=== PATIENT | female | born 1935 | race Caucasian/White ===

== ENCOUNTER 2016-07-16 14:57 | Emergency (ER) | payer MEDICARE ==
[2016-07-16 15:03] VITALS: RESP 16
--- NOTE | 2016-07-16 15:33 | ED ---
General Adult HPI - General Chief complaint: Recheck/Abnormal Lab/Rx Stated complaint: tremors Time Seen by Provider: 07/16/16 15:06 Source: EMS, RN notes reviewed Mode of arrival: EMS Limitations: language barrier - History of Present Illness Initial comments: Is an 81-year-old female brought to emergency department via [facility]. They states that she keeps having spasms, trimming like episodes. They only last a few seconds at a time. Patient information is very limited secondary to her dementia and that she is essentially nonverbal. Patient occasionally does say yes or no but has not otherwise week. When asked questions she has no specific complaints. She denies headache, chest pain, nausea, abdominal pain.. There is no family with the patient at this time in counseling the patient had very limited information on patient. - Related Data Home Medications Medication Instructions Recorded Confirmed Levothyroxine Sodium [Levoxyl] 50 mcg PO DAILY 03/03/14 07/16/16 Memantine [Namenda] 10 mg PO BID 03/03/14 07/16/16 Alendronate Sodium 70 mg PO SA 07/16/16 07/16/16 Cholecalciferol [Vitamin D3] 1,000 unit PO DAILY 07/16/16 07/16/16 Turmeric Root Extract [Turmeric] 500 mg PO DAILY 07/16/16 07/16/16 Previous Rx's Medication Instructions Recorded Levofloxacin [Levaquin] 500 mg PO DAILY #7 tab 07/16/16 Allergies Allergy/AdvReac Type Severity Reaction Status Date / Time No Known Allergies Allergy Verified 07/16/16 15:47 Review of Systems ROS Statement: Those systems with pertinent positive or pertinent negative responses have been documented in the HPI. ROS Other: All systems not noted in ROS Statement are negative. Past Medical History Past Medical History: Dementia, Thyroid Disorder History of Any Multi-Drug Resistant Organisms: None Reported Past Surgical History: No Surgical Hx Reported Additional Past Surgical History / Comment(s): foot Past Psychological History: No Psychological Hx Reported Smoking Status: Never smoker Past Alcohol Use History: None Reported Past Drug Use History: None Reported General Exam General appearance: alert, in no apparent distress Head exam: Present: atraumatic, normocephalic, normal inspection Eye exam: Present: normal appearance, PERRL, EOMI. Absent: scleral icterus, conjunctival injection, periorbital swelling ENT exam: Present: normal exam, normal oropharynx, mucous membranes moist, TM's normal bilaterally, normal external ear exam Neck exam: Present: normal inspection, full ROM. Absent: tenderness, meningismus, lymphadenopathy Respiratory exam: Present: normal lung sounds bilaterally. Absent: respiratory distress, wheezes, rales, rhonchi, stridor Cardiovascular Exam: Present: regular rate, normal rhythm, normal heart sounds. Absent: systolic murmur, diastolic murmur, rubs, gallop, clicks GI/Abdominal exam: Present: soft, normal bowel sounds. Absent: distended, tenderness, guarding, rebound, rigid Extremities exam: Present: other (Contracted extremities) Neurological exam: Present: alert. Absent: oriented X3 Skin exam: Present: warm, dry, intact, normal color. Absent: rash Course Vital Signs 07/16/16 07/16/16 14:58 17:08 Temperature 96.7 F L 97.1 F L Pulse Rate 65 77 Respiratory 16 16 Rate Blood Pressure 149/88 143/87 O2 Sat by Pulse 93 L 93 L Oximetry Medical Decision Making - Medical Decision Making 81-year-old female presented emergency department for tremors. Patient initially showed a via EMS with no family. Patient's family is here and states this is an ongoing issue no acute changes. Chest x-ray showed possible rupture versus atelectasis. Family states she has had a cough. Patient we treated with antibiotics at this time for possible pneumonia. Patient will follow primary care physician and return parameters were discussed. - Lab Data Result diagrams: 07/16/16 15:10 07/16/16 15:10 Lab Results 07/16/16 07/16/16 07/16/16 Range/Units 15:10 15:10 15:10 WBC 2.6 L (3.8-10.6) k/uL RBC 3.76 L (3.80-5.40) m/uL Hgb 12.3 (11.4-16.0) gm/dL Hct 37.2 (34.0-46.0) % MCV 98.8 (80.0-100.0) fL MCH 32.7 (25.0-35.0) pg MCHC 33.1 (31.0-37.0) g/dL RDW 13.3 (11.5-15.5) % Plt Count 177 (150-450) k/uL Neutrophils % 63 % Lymphocytes % 25 % Monocytes % 8 % Eosinophils % 1 % Basophils % 1 % Neutrophils # 1.6 (1.3-7.7) k/uL Lymphocytes # 0.6 L (1.0-4.8) k/uL Monocytes # 0.2 (0-1.0) k/uL Eosinophils # 0.0 (0-0.7) k/uL Basophils # 0.0 (0-0.2) k/uL PT 10.3 (9.0-12.0) sec INR 1.0 (<1.1) APTT 23.2 (22.0-30.0) sec Sodium 144 (137-145) mmol/L Potassium 4.9 (3.5-5.1) mmol/L Chloride 104 (98-107) mmol/L Carbon Dioxide 30 (22-30) mmol/L Anion Gap 10 mmol/L BUN 18 H (7-17) mg/dL Creatinine 0.95 (0.52-1.04) mg/dL Est GFR (MDRD) Af Amer >60 (>60 ml/min/1.73 sqM) Est GFR (MDRD) Non-Af 57 (>60 ml/min/1.73 sqM) Glucose 91 (74-99) mg/dL Calcium 9.1 (8.4-10.2) mg/dL Magnesium 2.0 (1.6-2.3) mg/dL Total Bilirubin 0.3 (0.2-1.3) mg/dL AST 27 (14-36) U/L ALT 23 (9-52) U/L Alkaline Phosphatase 87 (38-126) U/L Troponin I (0.000-0.034) ng/mL Total Protein 6.6 (6.3-8.2) g/dL Albumin 3.7 (3.5-5.0) g/dL Urine Color Urine Appearance (Clear) Urine pH (5.0-8.0) Ur Specific Blossom (1.001-1.035) Urine Protein (Negative) Urine Glucose (UA) (Negative) Urine Ketones (Negative) Urine Blood (Negative) Urine Nitrite (Negative) Urine Bilirubin (Negative) Urine Urobilinogen (<2.0) mg/dL Ur Leukocyte Esterase (Negative) Urine Bacteria (None) /hpf Urine Mucus (None) /hpf 07/16/16 07/16/16 Range/Units 15:10 15:10 WBC (3.8-10.6) k/uL RBC (3.80-5.40) m/uL Hgb (11.4-16.0) gm/dL Hct (34.0-46.0) % MCV (80.0-100.0) fL MCH (25.0-35.0) pg MCHC (31.0-37.0) g/dL RDW (11.5-15.5) % Plt Count (150-450) k/uL Neutrophils % % Lymphocytes % % Monocytes % % Eosinophils % % Basophils % % Neutrophils # (1.3-7.7) k/uL Lymphocytes # (1.0-4.8) k/uL Monocytes # (0-1.0) k/uL Eosinophils # (0-0.7) k/uL Basophils # (0-0.2) k/uL PT (9.0-12.0) sec INR (<1.1) APTT (22.0-30.0) sec Sodium (137-145) mmol/L Potassium (3.5-5.1) mmol/L Chloride (98-107) mmol/L Carbon Dioxide (22-30) mmol/L Anion Gap mmol/L BUN (7-17) mg/dL Creatinine (0.52-1.04) mg/dL Est GFR (MDRD) Af Amer (>60 ml/min/1.73 sqM) Est GFR (MDRD) Non-Af (>60 ml/min/1.73 sqM) Glucose (74-99) mg/dL Calcium (8.4-10.2) mg/dL Magnesium (1.6-2.3) mg/dL Total Bilirubin (0.2-1.3) mg/dL AST (14-36) U/L ALT (9-52) U/L Alkaline Phosphatase (38-126) U/L Troponin I <0.012 (0.000-0.034) ng/mL Total Protein (6.3-8.2) g/dL Albumin (3.5-5.0) g/dL Urine Color Yellow Urine Appearance Cloudy H (Clear) Urine pH 7.5 (5.0-8.0) Ur Specific Blossom 1.016 (1.001-1.035) Urine Protein Trace H (Negative) Urine Glucose (UA) Negative (Negative) Urine Ketones Negative (Negative) Urine Blood Negative (Negative) Urine Nitrite Positive H (Negative) Urine Bilirubin Negative (Negative) Urine Urobilinogen <2.0 (<2.0) mg/dL Ur Leukocyte Esterase Negative (Negative) Urine Bacteria Occasional H (None) /hpf Urine Mucus Rare H (None) /hpf Disposition Clinical Impression: Occasional tremors, Lung infiltrate Disposition: HOME SELF-CARE Condition: Stable Instructions: Tremors (ED) Additional Instructions: Please return to the Emergency Department if symptoms worsen or any other concerns. Prescriptions: Levofloxacin [Levaquin] 500 mg PO DAILY #7 tab Time of Disposition: 17:17
[2016-07-16 15:48] LABS: Basophils % (A) 1 %; CH 32.6; CHCM 33.1; Eosinophils % (A) 1 %; HCT 37.2 % (34.0-46.0); HDW 2.65; HGB 12.3 gm/dL (11.4-16.0); Luc # (Auto) 0.08; Luc % (Auto) 3; Lymphocytes # (A) 0.6 k/uL (1.0-4.8); Lymphocytes % (A) 25 %; MCH 32.7 pg (25.0-35.0); MCHC 33.1 g/dL (31.0-37.0); MCV 98.8 fL (80.0-100.0); Mean Platelet Volume 6.9; Monocytes # (A) 0.2 k/uL (0-1.0); Monocytes % (A) 8 %; Neutrophils # (A) 1.6 k/uL (1.3-7.7); Neutrophils % (A) 63 %; RBC 3.76 m/uL (3.80-5.40); RDW 13.3 % (11.5-15.5); WBC 2.6 k/uL (3.8-10.6); WBC (Perox) 2.55
--- NOTE | 2016-07-16 15:54 | XR ---
EXAMINATION TYPE: XR chest 2V DATE OF EXAM: 07/16/2016 3:50 PM COMPARISON: NONE TECHNIQUE: PA and lateral views submitted. HISTORY: Altered mental status FINDINGS: Subsegmental infiltrate or atelectasis left lung base. Atherosclerotic change aorta. Diffuse osteopen ia. Arthropathy shoulders. Biapical pleural pain. Degenerative change of the spine. IMPRESSION: 1. Left basilar atelectasis favored over infiltrate.
[2016-07-16 16:00] LABS: Partial Thromboplastin Time 23.2 sec (22.0-30.0); Prothrombin Time 10.3 sec (9.0-12.0)
[2016-07-16 16:04] LABS: ALT 23 U/L (9-52); AST 27 U/L (14-36); Alkaline Phosphatase 87 U/L (38-126); Anion Gap 10 mmol/L; Blood Urea Nitrogen 18 mg/dL (7-17); Calcium 9.1 mg/dL (8.4-10.2); Carbon Dioxide 30 mmol/L (22-30); Chloride 104 mmol/L (98-107); Glucose 91 mg/dL (74-99); Non-African American GFR(MDRD) 57 (>60 ml/min/1.73 sqM); Potassium 4.9 mmol/L (3.5-5.1); Sodium 144 mmol/L (137-145); Total Bilirubin 0.3 mg/dL (0.2-1.3); Total Protein 6.6 g/dL (6.3-8.2)
[2016-07-16 16:10] LABS: Appearance,Urine Cloudy (Clear); Bacteria,Urine Occasional /hpf; Bilirubin,Urine Negative (Negative); Glucose,Urine (UA) Negative (Negative); Ketones,Urine Negative (Negative); Leukocyte Esterase,Urine Negative (Negative); Mucus,Urine Rare /hpf; Nitrite,Urine Positive (Negative); PH, Urine 7.5 (5.0-8.0); Particle Count 49799; Protein,Urine Trace (Negative); Specific Gravity,Urine 1.016 (1.001-1.035); UA Billing (MACRO vs. MICRO) MICRO; Urobilinogen,Urine <2.0 mg/dL (<2.0)
--- NOTE | 2016-07-16 16:34 | CT ---
EXAMINATION TYPE: CT brain wo con DATE OF EXAM: 07/16/2016 4:24 PM HISTORY: Tremors today. Possible seizure. Altered mental status. CT DLP: 1132 mGycm. Automated Exposure Control for Dose Reduction was Utilized. TECHNIQUE: CT scan of the head is performed without contrast. COMPARISON: CT brain exams July 04, 2015 and March 03, 2014.. FINDINGS: There is no acute intracranial hemorrhage or midline shift identified. There is diffuse v entricular and sulcal prominence consistent with diffuse age-related cerebral atrophy. Degree of christina tricular dilatation is out of proportion to degree of sulcal effacement and a normal pressure hydroce phalus cannot be excluded. No significant change from 2014 exam however is noted. There is low-attenu ation in the periventricular white matter consistent with chronic small vessel ischemic change. The globes are intact bilaterally. Air-fluid levels are seen in visualized portion of both maxillary sinu ses Current study. There is patchy opacification involving anterior ethmoid sinuses bilaterally. There is no air-fluid level in the left sphenoid sinus. IMPRESSION: No acute intracranial hemorrhage or midline shift. There is moderate to severe diffuse age-related cerebral atrophy and chronic small vessel ischemic change redemonstrated without signific ant change from prior. New acute paranasal sinus disease is noted.
[2016-07-16 17:27] VITALS: BP 130/87; PULSE 83; TEMP 97.2
== END 2016-07-16 17:26 | disposition home or self-care (01) ==
LOC: EC 14:57
DX: R25.1 Tremor, unspecified (principal); R91.8 Other nonspecific abnormal finding of lung field; F03.90 Unspecified dementia, unspecified severity, without behavioral disturbance, psychotic disturbance, mood disturbance, and anxiety; E07.9 Disorder of thyroid, unspecified; Z79.899 Other long term (current) drug therapy
CPT/HCPCS: 36415; 70450; 71020; 80053; 81001; 83735; 84484; 85025; 85610; 85730; 99285

== ENCOUNTER → 2016-08-03 | Outpatient (CLI) | payer MEDICARE ==
--- NOTE | 2016-08-03 16:36 | US ---
EXAMINATION TYPE: US carotid duplex BILAT DATE OF EXAM: 08/03/2016 4:00 PM COMPARISON: NONE CLINICAL HISTORY: G30.1 Alzheimer disease with late onset. altered mental status EXAM MEASUREMENTS: RIGHT: Peak Systolic Velocity (PSV) cm/sec ----- Right CCA: 59.8 ----- Right ICA: 85.3 ----- Right ECA: 129.9 ICA/CCA ratio: 1.4 RIGHT: End Diastole cm/sec ----- Right CCA: 12.1 ----- Right ICA: 25.8 ----- Right ECA: 13.6 LEFT: Peak Systolic Velocity (PSV) cm/sec ----- Left CCA: 44.6 ----- Left ICA: 111.8 ----- Left ECA: 58.9 ICA/CCA ratio: 2.5 LEFT: End Diastole cm/sec ----- Left CCA: 12.4 ----- Left ICA: 29.0 ----- Left ECA: 5.9 VERTEBRALS (direction of flow): Right Vertebral: Antegrade Left Vertebral: Antegrade Confused patient who had difficulty cooperating with examiner, very tortuous ICA on left, technologis t believes that is the reason for slight velocity elevation on that side. No significant stenosis. sawant scale, color doppler, spectral doppler imaging of the carotid arteries IMPRESSION: no hemodynamic significant stenosis of the proximal internal carotid arteries is suspect ed, elevated ratio ICA/CCA may be due to tortuosity, consider CTAngiogram as indicated. Criteria for Assigning % of Stenosis / Diameter reduction (Estimation based on the indirect measurements of the internal carotid artery velocities (ICA PSV). 1. Normal (no stenosis)=ICA PSV < 125 cm/s: ratio < 2.0: ICA EDV<40 cm/s. 2. Less than 50% stenosis=ICA PSV < 125 cm/s: ratio < 2.0: ICA EDV<40 cm/s. 3. 50 to 69% stenosis=ICA PSV of 125 to 230 cm/s: ration 2.0 ? 4.0: ICA EDV 40-100 cm/s. 4. Greater than 70% stenosis to near occlusion= ICA PSV > 230 cm/s: ratio > 4.0: ICA EDV > 100 cm/s. 5. Near occlusion= ICA PSV velocities may be low or undetectable: variable ratio and ICA EDV. 6. Total occlusion=unable to detect flow.
--- NOTE | 2016-08-04 08:41 | ECHOF ---
Referral Reason:W MEASUREMENTS -------- HEIGHT: 157.5 cm WEIGHT: 49.9 kg BP: IVSd: 1.1 cm (0.6 - 1.1) LVIDd: 3.8 cm (3.9 - 5.3) LVPWd: 1.0 cm (0.6 - 1.1) IVSs: 1.6 cm LVIDs: 2.5 cm LVPWs: 1.2 cm LA Diam: 3.3 cm (2.7 - 3.8) LAESV Index (A-L): 42.14 ml/m MV EXCURSION: 22.126 mm (> 18.000) MV EF SLOPE: 69 mm/s (70 - 150) EPSS: 0.2 cm MV E Michael: 0.67 m/s MV DecT: 191 ms MV A Michael: 0.63 m/s MV E/A Ratio: 1.06 RAP: 5.00 mmHg RVSP: 24.29 mmHg FINDINGS -------- Sinus rhythm. This was a technically adequate study. The left ventricular size is normal. There is mild concentric left ventricular hypertrophy. Overall left ventricular systolic function is normal with, an EF between 55 - 60 %. The right ventricle is normal in size. LA is severely dilated >40 ml/m2 The right atrial size is normal. There is mild aortic valve sclerosis. There is no evidence of aortic regurgitation. The mitral valve leaflets are mildly thickened. [id number] mitral regurgitation is present. There is moderate mitral valve prolapse. Moderate tricuspid regurgitation present. There is no evidence of pulmonary hypertension. The right ventricular systolic pressure, as measured by Doppler, is 24.29mmHg. There is no pulmonic regurgitation present. The aortic root size is normal. There is no pericardial effusion. CONCLUSIONS -------- 1. Sinus rhythm. 2. There is no evidence of pulmonary hypertension. 3. The right ventricular systolic pressure, as measured by Doppler, is 24.29mmHg. 4. There is no pulmonic regurgitation present. 5. There is no pericardial effusion. 6. This was a technically adequate study. 7. There is mild concentric left ventricular hypertrophy. 8. Overall left ventricular systolic function is normal with, an EF between 55 - 60 %. 9. LA is severely dilated >40 ml/m2 10. There is mild aortic valve sclerosis. 11. [id number] mitral regurgitation is present. 12. There is moderate mitral valve prolapse. 13. Moderate tricuspid regurgitation present. [employer]E [employer]OLATE DIPPER: Irene Sutton RDCS
== END | disposition home or self-care (01) ==
LOC: RADECHMAIN 15:13
PROVIDERS: ATTEND Psychiatry & Neurology Neurology
DX: I08.1 Rheumatic disorders of both mitral and tricuspid valves (principal); G45.9 Transient cerebral ischemic attack, unspecified; G30.1 Alzheimer's disease with late onset
CPT/HCPCS: 93306; 93880

== ENCOUNTER 2016-11-27 14:29 | Emergency (ER) | payer MEDICARE ==
[2016-11-27 14:44] VITALS: PULSE 83
--- NOTE | 2016-11-27 14:52 | ED ---
General Adult HPI - General Chief complaint: Fall Stated complaint: Fall/head Lac Time Seen by Provider: 11/27/16 14:31 - History of Present Illness Initial comments: Maggie a 81-year-old female with a history of dementia who presents to the ED via EMS for evaluation of a fall and laceration to the back of head. The patient has advanced dementia and is minimally to non-verbal. She has a history of gait instability and is a 1-2 person assist at all times. Per the family she was at the [facility], they report that they were not there to witness her fall. There were told by staff that in showroom sales assistant was helping the patient ambulate when she lost her footing and fell backwards striking her head on the ground. The patient did not lose consciousness. EMS was called immediately they applied a cervical collar and transfer the patient to the ER for further evaluation. The patient is awake, she appears to be in no acute distress. She smiles when being spoken to. She offers no history. - Related Data Home Medications Medication Instructions Recorded Confirmed Memantine [Namenda] 10 mg PO DAILY 03/03/14 11/27/16 Alendronate Sodium 70 mg PO Q7D 07/16/16 11/27/16 Cholecalciferol [Vitamin D3] 2,000 unit PO DAILY 07/16/16 11/27/16 Levothyroxine Sodium [Synthroid] 50 mcg PO DAILY 11/27/16 11/27/16 Allergies Allergy/AdvReac Type Severity Reaction Status Date / Time No Known Allergies Allergy Verified 07/16/16 15:47 Review of Systems ROS Statement: Those systems with pertinent positive or pertinent negative responses have been documented in the HPI. ROS Other: All systems not noted in ROS Statement are negative. Limitations: ROS unobtainable due to patients medical condition (non-verbal, dementia) Past Medical History Past Medical History: Dementia, Thyroid Disorder History of Any Multi-Drug Resistant Organisms: None Reported Past Surgical History: No Surgical Hx Reported Additional Past Surgical History / Comment(s): foot Past Psychological History: No Psychological Hx Reported Smoking Status: Never smoker Past Alcohol Use History: None Reported Past Drug Use History: None Reported General Exam Limitations: altered mental status (demented, non-verbal) General appearance: alert, in no apparent distress Head exam: Present: normocephalic, other (abrasion to occiput ) Eye exam: Present: normal appearance, PERRL Neck exam: Absent: tenderness Respiratory exam: Present: normal lung sounds bilaterally Cardiovascular Exam: Present: systolic murmur (blowing holosystolic murmur consistent with aortic stenosis) GI/Abdominal exam: Present: soft. Absent: tenderness Rectal exam: Present: deferred Extremities exam: Present: other (resisted ROM of right knee, full ROM of left hip and knee) Neurological exam: Present: alert, other (at baseline activity per family ) Skin exam: Present: warm, dry Course Vital Signs 11/27/16 11/27/16 14:33 17:43 Temperature 97.9 F 98.2 F Pulse Rate 83 83 Respiratory 18 20 Rate Blood Pressure 114/80 127/75 O2 Sat by Pulse 96 94 L Oximetry - Reevaluation(s) Reevaluation #1: Patient re-evaluated, resting comfortably, knees bent up. Patient is sleeping, but family reports she wakes and seems to be at baseline. Family requesting xray of lumbar spine, patient has history of lumbar compression fractures. 11/27/16 16:00 Reevaluation #2: Patient re-evaluated, resting comfortably. Head wound cleansed and dressed. Will await xray results 11/27/16 16:42 Medical Decision Making - Medical Decision Making Patient was seen and evaluated, vital signs were reviewed History was obtained from EMS Patient is pleasantly demented and offers no meaningful history Imaging were ordered Head and cervical spine CT were unremarkable X-ray of knees, pelvis and lumbar spine were reviewed, patient with chronic L4 compression fracture no acute injuries Abrasion to back ahead was washed and dressed Tetanus was updated All pertinent radiographic and physical exam findings were discussed with the patient's family at bedside. Advised the patient has an abrasion to the back of her head and no other acute injuries identified. At this time the family is agreeable to plan for discharge home. Discussed with them the signs and symptoms of concussion, discussed with him the difficulty in evaluating for concussion in a demented patient. However advised them to bring her back to the emergency department or call 911 if the patient develops any sudden change in activity or mental status. Patient's , power press operator and daughter at bedside all expressed understanding and agreement with the plan. Patient was discharged home in stable care. Disposition Clinical Impression: Fall, Abrasion, scalp w/o infection Disposition: HOME SELF-CARE Condition: Good Instructions: Fall Prevention for Older Adults (ED) Referrals: Maynor Huerta MD [Primary Care Provider] - 1-2 days Time of Disposition: 17:10
--- NOTE | 2016-11-27 15:52 | CT ---
EXAMINATION TYPE: CT brain kimmie montano con DATE OF EXAM: 11/27/2016 COMPARISON: CT brain 07/16/2016 HISTORY: 81-year-old female with fall CT DLP: 1453 mGycm Automated exposure control for dose reduction was used. Technique: Examination of the head was done in axial plane without intravenous contrast. Coronal and sagittal reconstructions performed. CT of the cervical spine was obtained in axial plane without intravenous injection of contrast mater ial. Coronal and sagittal reformatted images were obtained from the axial views for evaluation of f ractures, spinal alignment and canal. FINDINGS: Head: There is no evidence of acute intracranial hemorrhage, acute ischemic changes, mass, mass-effect, or extra-axial fluid collection. There is no effacement of cerebral sulci or basal subarachnoid cister ns. There is no midline shift. Wagner-white matter distinction is preserved. Redemonstrated moderate hydrocephalus with Miguel's ratio of 0.41. Previous Rajput ratio is estimated at 0.43. Moderate to severe confluent periventricular and deep white matter hypodensities with moderate cerebr al cortical atrophy. Overall appearance is unchanged. Paranasal sinuses and mastoid air cells are well pneumatized. Orbits and globes are intact. There is a mild left posterior scalp contusion without underlying calvarial fracture. Cervical spine: There are small layering pleural effusions with septal lines in the upper lungs. No craniocervical junction abnormality, predental space widening, or prevertebral soft tissue swellin g. There is grade 1 anterolisthesis at C3-C4 and reversal of the normal cervical lordosis. Moderate to advanced disc/endplate degenerative changes especially from C4 through C7 levels. Scatter ed facet and uncovertebral joint arthropathy is present. Mild canal stenosis at C4-C5. Variable mild to moderate neuroforaminal stenoses particularly at C4-C5 on the right, C5-C6 on the right, and C6-C7 on both sides. Sagittal and coronal reformatted images confirm above findings. COMBINED IMPRESSION: 1. Mild left posterior scalp contusion without underlying calvarial fracture or acute intracranial ab normality seen. 2. There is similar moderate to severe changes of chronic small vessel ischemic disease and moderate hydrocephalus likely in part due to ex vacuo ventriculomegaly. 3. No acute fracture of the cervical spine. Moderate to advanced multilevel spondylotic change with a degenerative grade 1 anterolisthesis at C3-C4. 4. Small effusions with septal lines in the upper lungs. Correlate for mild to moderate CHF.
[2016-11-27] MEDS ORDERED: DIPH,PERTUS(ACELL)TETVAC-LF 0.5 ML VIAL IM ONE (16:42)
--- NOTE | 2016-11-27 16:49 | XR ---
EXAMINATION TYPE: XR pelvis AP view DATE OF EXAM: 11/27/2016 COMPARISON: NONE HISTORY: Pain after a fall TECHNIQUE: Single view FINDINGS: Pelvic ring is intact. Proximal femurs and hip joints are intact. Sacroiliac joints are nor mal. IMPRESSION: Negative pelvis x-ray exam.
--- NOTE | 2016-11-27 16:56 | XR ---
EXAMINATION TYPE: XR lumbar spine 2 or 3V DATE OF EXAM: 11/27/2016 COMPARISON: NONE HISTORY: Back pain TECHNIQUE: 3 views FINDINGS: There is a mild lumbar dextroscoliosis. There is degenerative moderate disc space narrowing at L1-L2 3 L5-S1. There is 15% anterior wedging of L4 vertebral body. This is probably old. There is a mild dextroscoli osis. There is 8mm anterior subluxation of L5 in relation S1. IMPRESSION: Multilevel spondylosis. Degenerative first-degree L5-S1 spondylolisthesis. Compression fr acture of L4 is probably old.
--- NOTE | 2016-11-27 16:57 | XR ---
EXAMINATION TYPE: XR knee 4V RT DATE OF EXAM: 11/27/2016 COMPARISON: NONE HISTORY: Knee pain after a fall TECHNIQUE: 4 views FINDINGS: There is spurring of the femoral tibial condyles and worse on the lateral aspect. I see no fracture nor dislocation. There is probably a small knee joint effusion. IMPRESSION: There is some osteoarthritis and worse in the lateral joint space. No fracture seen.
[2016-11-27 17:44] VITALS: BP 127/75; RESP 20; TEMP 98.2
== END 2016-11-27 17:44 | disposition home or self-care (01) ==
LOC: EC 14:29
DX: S00.01XA Abrasion of scalp, initial encounter (principal); F03.90 Unspecified dementia, unspecified severity, without behavioral disturbance, psychotic disturbance, mood disturbance, and anxiety; R41.82 Altered mental status, unspecified; R01.1 Cardiac murmur, unspecified; E07.9 Disorder of thyroid, unspecified; Z79.899 Other long term (current) drug therapy; Z23 Encounter for immunization; W01.198A Fall on same level from slipping, tripping and stumbling with subsequent striking against other object, initial encounter; Y93.01 Activity, walking, marching and hiking
CPT/HCPCS: 70450; 72100; 72125; 72170; 90471; 90715; 99284

== ENCOUNTER 2019-08-06 12:34 | Inpatient (IN) | payer MEDICARE ==
[2019-08-06] MEDS ORDERED: SODIUM CHLORIDE 0.9% 1,000 ML IV STA (12:48)
[2019-08-06] MEDS ORDERED: CEFEPIME 2 GM in SODIUM CHLORIDE 0.9% 100 ML IVPB STA (12:49)
[2019-08-06] MEDS ORDERED: VANCOMYCIN IV PER PHARMACY 1 EACH MISC MISCELLANE PRN (12:49)
[2019-08-06] MEDS ORDERED: VANCOMYCIN 1,000 MG in SODIUM CHLORIDE 0.9% 250 ML IVPB STA (12:52)
[2019-08-06 12:56] LABS: Glucose,Whole Blood 146 mg/dL (75-99)
--- NOTE | 2019-08-06 13:06 | ED ---
General Adult HPI - General Chief complaint: Altered Mental Status Stated complaint: Altered Time Seen by Provider: 08/06/19 12:48 Source: EMS Mode of arrival: EMS Limitations: altered mental status - History of Present Illness Initial comments: Dictation was produced using Cantimer dictation software. please excuse any grammatical, word or spelling errors. This patient was cared for during a federal and state declared state of emergency secondary to Covid 19 Chief Complaint: 84-year-old female past medical history rheumatoid arthritis, chronic debility presents with unresponsiveness. History of Present Illness: Patient is a 4-year-old female she has chronic debility. She is bedbound. Patient's primary by EMS for altered mental status. Patient has been altered since Saturday. Patient unable to provide HPI secondary to mental status. EMS reports that her symptoms began on Saturday where she seemed to be more lethargic than usual. EMS had difficulty checking a temperature however they do report that she feels cold. She was found to be tachycardic with marginally low blood pressure. at bedside reports that his chin is bedridden. Unable to obtain secondary to mental status PHYSICAL EXAM: General Impression: Lethargic HEENT: Normocephalic atraumatic, dry mucous members, eye deviation to the right Cardiovascular: Tachycardic Chest: no retractions, no tachypnea Abdomen: abdomen soft, non-tender, non-distended, no organomegaly Musculoskeletal: Weak pulses, no peripheral edema Neurological: Eye deviation to the right, facial palsy to the left, does not move left upper and left lower extremity secondary to Skin: Intact with no visualized rashes ED course: 84-year-old female presents with altered mental status. Patient appears lethargic at bedside. As upon arrival shows temperature 100.8 rectal, heart rate of 125, rest of vital signs within acceptable limits. Patient is unresponsive. She does show focal neurologic symptoms with what appears to be paralysis to the left extremities and facial paralysis grimace when painful stimuli applied. EKG shows sinus tachycardia without any significant ST or T- wave changes. Code stroke paged. Patient's NIH is significantly high. She is unresponsive. at bedside reports that she along with his daughters are decision makers. He reports that patient has been altered for the last 2-3 days. They report that she is bedridden and is not ambulatory at baseline. He contacted his daughters and reports that patient is DNR. Laboratory evaluation obtained. CBC shows megaloblastic anemia. Coag panel is unremarkable. Metabolic panel shows sodium 155, potassium 5.4, creatinine of 2.42 with a BUN of 96. Lactic acidosis 3.2 and troponin 0.111. Urinalysis concerning for urinary tract infection. Computed tomography scan of the brain shows findings concerning for normal pressure hydrocephalus. 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 Pending chest x-ray. Patient given broad-spectrum antibiotics, intravenous fluids. Clinical presentation concerning for sepsis and cerebrovascular accident. Considering that patient is DO NOT RESUSCITATE [facility]. Hospice consult is placed. Family is agreeable with plan. Case was discussed with stroke neurologist, Dr. Snyder recommends no aggressive intervention be made at this time considering patient's CODE STATUS. EKG interpretation: Ventricular rate 124, sinus tachycardia, HI interval 120, QRS 82, QTc 445. No HI prolongation, no QTC prolongation, no ST or T-wave changes noted. Overall, this EKG is unremarkable - Related Data Home Medications Medication Instructions Recorded Confirmed Alendronate Sodium 70 mg PO Q7D 07/16/16 08/06/19 Levothyroxine Sodium [Synthroid] 50 mcg PO DAILY 11/27/16 08/06/19 Allergies Allergy/AdvReac Type Severity Reaction Status Date / Time No Known Allergies Allergy Verified 08/06/19 13:39 Review of Systems ROS Statement: Those systems with pertinent positive or pertinent negative responses have been documented in the HPI. ROS Other: All systems not noted in ROS Statement are negative. Past Medical History Past Medical History: Dementia, Thyroid Disorder History of Any Multi-Drug Resistant Organisms: None Reported Past Surgical History: No Surgical Hx Reported Additional Past Surgical History / Comment(s): foot Past Psychological History: No Psychological Hx Reported Smoking Status: Never smoker Past Alcohol Use History: None Reported Past Drug Use History: None Reported General Exam Limitations: altered mental status Course Vital Signs 08/06/19 08/06/19 08/06/19 12:40 13:15 14:27 Temperature 98 F Pulse Rate 112 H 120 H 98 Respiratory 20 18 20 Rate Blood Pressure 139/78 129/85 139/78 O2 Sat by Pulse 99 98 98 Oximetry Medical Decision Making - Lab Data Result diagrams: 08/06/19 12:50 08/06/19 12:50 Lab Results 08/06/19 08/06/19 08/06/19 Range/Units 12:44 12:50 12:50 WBC 9.6 (3.8-10.6) k/uL RBC 4.40 (3.80-5.40) m/uL Hgb 14.7 (11.4-16.0) gm/dL Hct 46.5 H (34.0-46.0) % MCV 105.7 H (80.0-100.0) fL MCH 33.4 (25.0-35.0) pg MCHC 31.5 (31.0-37.0) g/dL RDW 13.9 (11.5-15.5) % Plt Count 312 (150-450) k/uL Neutrophils % 86 % Lymphocytes % 6 % Monocytes % 7 % Eosinophils % 0 % Basophils % 0 % Neutrophils # 8.3 H (1.3-7.7) k/uL Lymphocytes # 0.6 L (1.0-4.8) k/uL Monocytes # 0.6 (0-1.0) k/uL Eosinophils # 0.0 (0-0.7) k/uL Basophils # 0.0 (0-0.2) k/uL Hypochromasia Slight Macrocytosis Moderate PT 12.0 (9.0-12.0) sec INR 1.2 H (<1.2) APTT 21.5 L (22.0-30.0) sec Sodium (137-145) mmol/L Potassium (3.5-5.1) mmol/L Chloride (98-107) mmol/L Carbon Dioxide (22-30) mmol/L Anion Gap mmol/L BUN (7-17) mg/dL Creatinine (0.52-1.04) mg/dL Est GFR (CKD-EPI)AfAm (>60 ml/min/1.73 sqM) Est GFR (CKD-EPI)NonAf (>60 ml/min/1.73 sqM) Glucose (74-99) mg/dL POC Glucose (mg/dL) 146 H (75-99) mg/dL POC Glu Automatic [employer]ing Machine Operator ID Graciela Carvalho Plasma Lactic Acid Lonnie (0.7-2.0) mmol/L Calcium (8.4-10.2) mg/dL Total Bilirubin (0.2-1.3) mg/dL AST (14-36) U/L ALT (4-34) U/L Alkaline Phosphatase (38-126) U/L Troponin I (0.000-0.034) ng/mL Total Protein (6.3-8.2) g/dL Albumin (3.5-5.0) g/dL Urine Color Urine Appearance (Clear) Urine pH (5.0-8.0) Ur Specific [place] (1.001-1.035) Urine Protein (Negative) Urine Glucose (UA) (Negative) Urine Ketones (Negative) Urine Blood (Negative) Urine Nitrite (Negative) Urine Bilirubin (Negative) Urine Urobilinogen (<2.0) mg/dL Ur Leukocyte Esterase (Negative) Urine RBC (0-5) /hpf Urine WBC (0-5) /hpf Ur Squamous Epith Cells (0-4) /hpf Urine Bacteria (None) /hpf Urine Mucus (None) /hpf 08/06/19 08/06/19 08/06/19 Range/Units 12:50 12:50 12:50 WBC (3.8-10.6) k/uL RBC (3.80-5.40) m/uL Hgb (11.4-16.0) gm/dL Hct (34.0-46.0) % MCV (80.0-100.0) fL MCH (25.0-35.0) pg MCHC (31.0-37.0) g/dL RDW (11.5-15.5) % Plt Count (150-450) k/uL Neutrophils % % Lymphocytes % % Monocytes % % Eosinophils % % Basophils % % Neutrophils # (1.3-7.7) k/uL Lymphocytes # (1.0-4.8) k/uL Monocytes # (0-1.0) k/uL Eosinophils # (0-0.7) k/uL Basophils # (0-0.2) k/uL Hypochromasia Macrocytosis PT (9.0-12.0) sec INR (<1.2) APTT (22.0-30.0) sec Sodium 155 H (137-145) mmol/L Potassium 5.4 H (3.5-5.1) mmol/L Chloride 120 H (98-107) mmol/L Carbon Dioxide 23 (22-30) mmol/L Anion Gap 12 mmol/L BUN 96 H (7-17) mg/dL Creatinine 2.42 H (0.52-1.04) mg/dL Est GFR (CKD-EPI)AfAm 21 (>60 ml/min/1.73 sqM) Est GFR (CKD-EPI)NonAf 18 (>60 ml/min/1.73 sqM) Glucose 153 H (74-99) mg/dL POC Glucose (mg/dL) (75-99) mg/dL POC Glu Automatic Serging Machine Operator ID Plasma Lactic Acid Lonnie 3.2 H* (0.7-2.0) mmol/L Calcium 9.6 (8.4-10.2) mg/dL Total Bilirubin 0.4 (0.2-1.3) mg/dL AST 37 H (14-36) U/L ALT 24 (4-34) U/L Alkaline Phosphatase 110 (38-126) U/L Troponin I 0.111 H* (0.000-0.034) ng/mL Total Protein 7.2 (6.3-8.2) g/dL Albumin 4.2 (3.5-5.0) g/dL Urine Color Urine Appearance (Clear) Urine pH (5.0-8.0) Ur Specific [place] (1.001-1.035) Urine Protein (Negative) Urine Glucose (UA) (Negative) Urine Ketones (Negative) Urine Blood (Negative) Urine Nitrite (Negative) Urine Bilirubin (Negative) Urine Urobilinogen (<2.0) mg/dL Ur Leukocyte Esterase (Negative) Urine RBC (0-5) /hpf Urine WBC (0-5) /hpf Ur Squamous Epith Cells (0-4) /hpf Urine Bacteria (None) /hpf Urine Mucus (None) /hpf 08/06/19 Range/Units 13:32 WBC (3.8-10.6) k/uL RBC (3.80-5.40) m/uL Hgb (11.4-16.0) gm/dL Hct (34.0-46.0) % MCV (80.0-100.0) fL MCH (25.0-35.0) pg MCHC (31.0-37.0) g/dL RDW (11.5-15.5) % Plt Count (150-450) k/uL Neutrophils % % Lymphocytes % % Monocytes % % Eosinophils % % Basophils % % Neutrophils # (1.3-7.7) k/uL Lymphocytes # (1.0-4.8) k/uL Monocytes # (0-1.0) k/uL Eosinophils # (0-0.7) k/uL Basophils # (0-0.2) k/uL Hypochromasia Macrocytosis PT (9.0-12.0) sec INR (<1.2) APTT (22.0-30.0) sec Sodium (137-145) mmol/L Potassium (3.5-5.1) mmol/L Chloride (98-107) mmol/L Carbon Dioxide (22-30) mmol/L Anion Gap mmol/L BUN (7-17) mg/dL Creatinine (0.52-1.04) mg/dL Est GFR (CKD-EPI)AfAm (>60 ml/min/1.73 sqM) Est GFR (CKD-EPI)NonAf (>60 ml/min/1.73 sqM) Glucose (74-99) mg/dL POC Glucose (mg/dL) (75-99) mg/dL POC Glu Automatic Serging Machine Operator ID Plasma Lactic Acid Lonnie (0.7-2.0) mmol/L Calcium (8.4-10.2) mg/dL Total Bilirubin (0.2-1.3) mg/dL AST (14-36) U/L ALT (4-34) U/L Alkaline Phosphatase (38-126) U/L Troponin I (0.000-0.034) ng/mL Total Protein (6.3-8.2) g/dL Albumin (3.5-5.0) g/dL Urine Color Yellow Urine Appearance Cloudy H (Clear) Urine pH 5.5 (5.0-8.0) Ur Specific [place] 1.041 H (1.001-1.035) Urine Protein 1+ H (Negative) Urine Glucose (UA) Negative (Negative) Urine Ketones Negative (Negative) Urine Blood Trace H (Negative) Urine Nitrite Negative (Negative) Urine Bilirubin Negative (Negative) Urine Urobilinogen <2.0 (<2.0) mg/dL Ur Leukocyte Esterase Moderate H (Negative) Urine RBC 10 H (0-5) /hpf Urine WBC 47 H (0-5) /hpf Ur Squamous Epith Cells 1 (0-4) /hpf Urine Bacteria Rare H (None) /hpf Urine Mucus Many H (None) /hpf Critical Care Time Critical Care Time: Yes Total Critical Care Time: 33 Disposition Clinical Impression: CVA (cerebral vascular accident), Sepsis Disposition: ADMITTED IP TO THIS [facility] Condition: Critical Referrals: Maynor Huerta MD [Primary Care Provider] - 1-2 days Decision Time: 15:08
[2019-08-06 13:09] LABS: Basophils % (A) 0 %; Eosinophils % (A) 0 %; HCT 46.5 % (34.0-46.0); HGB 14.7 gm/dL (11.4-16.0); Hypochromasia Slight; Lymphocytes # (A) 0.6 k/uL (1.0-4.8); Lymphocytes % (A) 6 %; MCH 33.4 pg (25.0-35.0); MCHC 31.5 g/dL (31.0-37.0); MCV 105.7 fL (80.0-100.0); Macrocytosis Moderate; Mean Platelet Volume 8.4; Monocytes # (A) 0.6 k/uL (0-1.0); Monocytes % (A) 7 %; Neutrophils # (A) 8.3 k/uL (1.3-7.7); Neutrophils % (A) 86 %; Platelet Count 312 k/uL (150-450); RDW 13.9 % (11.5-15.5); WBC 9.6 k/uL (3.8-10.6)
[2019-08-06 13:15] LABS: Albumin 4.2 g/dL (3.5-5.0); Calcium 9.6 mg/dL (8.4-10.2); Potassium 5.4 mmol/L (3.5-5.1); Total Bilirubin 0.4 mg/dL (0.2-1.3); Total Protein 7.2 g/dL (6.3-8.2)
[2019-08-06 13:21] LABS: INR 1.2 (<1.2)
--- NOTE | 2019-08-06 13:24 | CT ---
EXAMINATION TYPE: CT brain wo con for TPA DATE OF EXAM: 08/06/2019 COMPARISON: 11/27/2016 HISTORY: 84-year-old female with neurologic deficits, CODE STROKE TECHNIQUE: Examination was done in axial plane without intravenous contrast. Coronal and sagittal r econstructions performed. CT DLP: 1384.1 mGycm Automated exposure control for dose reduction was used. FINDINGS: Progressive, now moderate to severe ventriculomegaly, Miguel's ratio calculated at 0.48 versus 0.41, pr eviously. Continued confluent white matter hypodensities both cerebral hemispheres. Episodic calcifications wilbur ateral carotid siphons. No evidence for acute intracranial hemorrhage, acute ischemic change, mass, m idline shift, or extra-axial fluid collection. No effacement of cerebral sulci or basal subarachnoid cisterns. Wagner-white matter differentiation is maintained. Visualized paranasal sinuses and mastoid air cells appear clear. Orbits and globes are intact. IMPRESSION: 1. Now, progressive moderate to severe hydrocephalus (Rajput ratio of 0.48 versus 0.41, previously). C onsider NPH. 2. Otherwise, no acute intracranial abnormality seen.
[2019-08-06] MEDS: SODIUM CHLORIDE 0.9% 500 ML 500 ML IV SCH ×2 (13:26→14:14)
[2019-08-06 13:51] LABS: Partial Thromboplastin Time 21.5 sec (22.0-30.0)
[2019-08-06 13:57] LABS: Appearance,Urine Cloudy (Clear); Bacteria,Urine Rare /hpf; Bilirubin,Urine Negative (Negative); Blood,Urine Trace (Negative); Color,Urine Yellow; Glucose,Urine (UA) Negative (Negative); Ketones,Urine Negative (Negative); Leukocyte Esterase,Urine Moderate (Negative); Mucus,Urine Many /hpf; Nitrite,Urine Negative (Negative); PH, Urine 5.5 (5.0-8.0); Protein,Urine 1+ (Negative); RBC,Urine 10 /hpf (0-5); Specific Gravity,Urine 1.041 (1.001-1.035); Squamous Epithelial Cell,Urine 1 /hpf (0-4); Urobilinogen,Urine <2.0 mg/dL (<2.0); WBC,Urine 47 /hpf (0-5)
--- NOTE | 2019-08-06 14:59 | CT ---
EXAMINATION TYPE: CT angio head neck DATE OF EXAM: 08/06/2019 COMPARISON: CT head performed same day HISTORY: 84-year-old female CODE STROKE TECHNIQUE: Contiguous axial scanning of the head and neck performed with IV Contrast, patient injecte d with 65 ml mL of Isovue 370. Coronal/sagittal MIP reconstructions performed. 3-D reconstructions ge nerated on a dedicated independent workstation. CT DLP: Not provided Automated exposure control for dose reduction was used. FINDINGS: NECK: Unable to exclude a small subsegmental branch embolus to the left upper lobe, refer to axial series 5 01 image 16 and coronal series 502 image 23. Bovine configuration to the aortic arch. The left vertebral artery is dominant. There is excessive motion limiting segments of the left verte bral artery. Utilizing multiplanar reconstructions, the vertebral arteries appear patent. Right common and internal carotid arteries are patent. The right ICA becomes small caliber at 2.5 mm after the level of the carotid bulb. Left common and internal carotid artery are patent. Lower left ICA is tortuous. Calcifications within the right greater than left bowel seen tonsils suggest sequela of prior infecti on. HEAD: Dominant left vertebral artery. Moderate to severe focal stenosis at the V3/V4 junction of the small caliber right vertebral artery, axial image 55. Basilar artery is patent. 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 Hypoplastic P1 segments bilaterally with persistent origin of the bilateral posterior cerebral arteries. Bilateral internal carotid arteries are patent. Severe focal short segment atherosclerotic narrowing proximal M2 segment right MCA, axial image 126. No additional aneurysmal change is seen. IMPRESSION: NECK: 1. Unable to exclude a small subsegmental branch pulmonary embolus to the left upper lobe, axial seri es 501 image 16. [address] PE CT if indicated. 2. While no focal stenosis is seen, the right ICA becomes uniformly small caliber at 2.5 mm after the carotid bulb. 3. Dominant left vertebral artery. HEAD: 1. Moderate to severe focal stenosis at the V3/V4 junction of the nondominant right vertebral artery. 2. Severe short segment atherosclerotic narrowing proximal M2 segment right MCA, axial image 126. 3. 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 4. No large vessel intracranial arterial occlusion.
[2019-08-06] MEDS ORDERED: NALOXONE 0.4 MG/ML 1 ML VIAL IV PRN (15:03)
[2019-08-06] MEDS ORDERED: ACETAMINOPHEN TAB 325 MG TAB PO PRN (15:03)
[2019-08-06] MEDS ORDERED: ONDANSETRON 4 MG/2 ML VIAL IVP PRN (15:03)
[2019-08-06] MEDS ORDERED: ASPIRIN 600 MG SUPP RECTAL STA (15:06)
--- NOTE | 2019-08-06 15:32 | XR ---
EXAMINATION TYPE: XR chest 1V DATE OF EXAM: 08/06/2019 COMPARISON: 07/16/2016 HISTORY: 84-year-old female confusion, altered mental status TECHNIQUE: Single frontal view of the chest is obtained. FINDINGS: Heart remains borderline to mildly enlarged. Mild diffuse interstitial prominence is unchanged. Minim al opacity peripheral left base. Vague density peripheral left midlung. IMPRESSION: Vague density peripheral left midlung and minimal density peripheral left base. Atelectasis versus ea rly pneumonia are considerations. Correlate with patient's symptoms.
[2019-08-06] MEDS ORDERED: MORPHINE SULFATE 2 MG/ML SYRINGE IVP PRN (15:55)
--- NOTE | 2019-08-06 16:03 | P.HPIM ---
History of Present Illness H&P Date: 08/06/19 This is a 84-year-old female with past medical history significant for advanced dementia who was brought into the emergency room with altered mental status and confusion. Patient is obtunded and is unable to provide any medical history. History was obtained by her at bedside. He informed me that patient is a resident at the [facility] and is usually bed bound. She has advanced dementia and is unable to recognize her surroundings. He told me since Saturday patient is been more confused and sleepy. She has not been eating or drinking much. There were more concerned today and decided to bring her to the emergency room for further evaluation. In the ER, patient was evaluated and lab work showed significant dehydration with acute kidney injury. Questionable NPH on computed tomography scan of the head. Patient will be admitted to the hospital for further management. Review of Systems Unable to review other systems given altered mental status Past Medical History Past Medical History: Dementia, Thyroid Disorder History of Any Multi-Drug Resistant Organisms: None Reported Past Surgical History: No Surgical Hx Reported Additional Past Surgical History / Comment(s): foot Past Psychological History: No Psychological Hx Reported Smoking Status: Never smoker Past Alcohol Use History: None Reported Past Drug Use History: None Reported Medications and Allergies Home Medications Medication Instructions Recorded Confirmed Type Alendronate Sodium 70 mg PO Q7D 07/16/16 08/06/19 History Levothyroxine Sodium [Synthroid] 50 mcg PO DAILY 11/27/16 08/06/19 History Allergies Allergy/AdvReac Type Severity Reaction Status Date / Time No Known Allergies Allergy Verified 08/06/19 13:39 Physical Exam Vitals: Vital Signs Temp Pulse Resp BP Pulse Ox 08/06/19 14:27 98 20 139/78 98 08/06/19 13:15 120 H 18 129/85 98 08/06/19 12:40 98 F 112 H 20 139/78 99 Intake and Output 08/06/19 08/06/19 08/06/19 06:59 14:59 22:59 Other: Weight 49.895 kg General: The patient is obtunded. She appears chronically ill. Eye: there is normal conjunctiva bilaterally. Neck: The neck is supple, there is no JVD. Cardiovascular: Normal S1-S2, no S3-S4, no murmurs. Respiratory: Lungs clear to auscultation bilaterally Gastrointestinal: Abdomen is soft, nontender Musculoskeletal: There is no pedal edema. Skin: Skin is warm and dry Results CBC & Chem 7: 08/06/19 12:50 08/06/19 12:50 Labs: Abnormal Lab Results - Last 24 Hours (Table) 08/06/19 08/06/19 08/06/19 Range/Units 12:44 12:50 12:50 Hct 46.5 H (34.0-46.0) % MCV 105.7 H (80.0-100.0) fL Neutrophils # 8.3 H (1.3-7.7) k/uL Lymphocytes # 0.6 L (1.0-4.8) k/uL INR 1.2 H (<1.2) APTT 21.5 L (22.0-30.0) sec Sodium (137-145) mmol/L Potassium (3.5-5.1) mmol/L Chloride (98-107) mmol/L BUN (7-17) mg/dL Creatinine (0.52-1.04) mg/dL Glucose (74-99) mg/dL POC Glucose (mg/dL) 146 H (75-99) mg/dL Plasma Lactic Acid Lonnie (0.7-2.0) mmol/L AST (14-36) U/L Troponin I (0.000-0.034) ng/mL Urine Appearance (Clear) Ur Specific [place] (1.001-1.035) Urine Protein (Negative) Urine Blood (Negative) Ur Leukocyte Esterase (Negative) Urine RBC (0-5) /hpf Urine WBC (0-5) /hpf Urine Bacteria (None) /hpf Urine Mucus (None) /hpf 08/06/19 08/06/19 08/06/19 Range/Units 12:50 12:50 12:50 Hct (34.0-46.0) % MCV (80.0-100.0) fL Neutrophils # (1.3-7.7) k/uL Lymphocytes # (1.0-4.8) k/uL INR (<1.2) APTT (22.0-30.0) sec Sodium 155 H (137-145) mmol/L Potassium 5.4 H (3.5-5.1) mmol/L Chloride 120 H (98-107) mmol/L BUN 96 H (7-17) mg/dL Creatinine 2.42 H (0.52-1.04) mg/dL Glucose 153 H (74-99) mg/dL POC Glucose (mg/dL) (75-99) mg/dL Plasma Lactic Acid Lonnie 3.2 H* (0.7-2.0) mmol/L AST 37 H (14-36) U/L Troponin I 0.111 H* (0.000-0.034) ng/mL Urine Appearance (Clear) Ur Specific [place] (1.001-1.035) Urine Protein (Negative) Urine Blood (Negative) Ur Leukocyte Esterase (Negative) Urine RBC (0-5) /hpf Urine WBC (0-5) /hpf Urine Bacteria (None) /hpf Urine Mucus (None) /hpf 08/06/19 Range/Units 13:32 Hct (34.0-46.0) % MCV (80.0-100.0) fL Neutrophils # (1.3-7.7) k/uL Lymphocytes # (1.0-4.8) k/uL INR (<1.2) APTT (22.0-30.0) sec Sodium (137-145) mmol/L Potassium (3.5-5.1) mmol/L Chloride (98-107) mmol/L BUN (7-17) mg/dL Creatinine (0.52-1.04) mg/dL Glucose (74-99) mg/dL POC Glucose (mg/dL) (75-99) mg/dL Plasma Lactic Acid Lonnie (0.7-2.0) mmol/L AST (14-36) U/L Troponin I (0.000-0.034) ng/mL Urine Appearance Cloudy H (Clear) Ur Specific [place] 1.041 H (1.001-1.035) Urine Protein 1+ H (Negative) Urine Blood Trace H (Negative) Ur Leukocyte Esterase Moderate H (Negative) Urine RBC 10 H (0-5) /hpf Urine WBC 47 H (0-5) /hpf Urine Bacteria Rare H (None) /hpf Urine Mucus Many H (None) /hpf Assessment and Plan Assessment: 1. Acute toxo metabolic encephalopathy: Multifactorial secondary to dehydration, UTI, questionable NPH. 2. Urinary tract infection: Patient received IV vancomycin and cefepime in the ER. We will continue with IV ceftriaxone for now 3. Hypovolemic hypernatremia: Will continue IV fluid hydration with D5/half-nor mal saline at 125 7 per hour 4. Acute kidney injury 5. Suspected normal pressure hydrocephalus: We will hold off on ordering MRI as plan is to pursue comfort measures/hospice 6. Questionable left lung pulmonary emboli 7. Advanced dementia of Alzheimer's type 8. CODE STATUS: DNR/DNI Today, I had a prolonged discussion with the patient at the bedside and her daughter on the phone. They both have "guardianship for the patient. He discussed goals of care and options for treatment and diagnostics. They both verbalized their wishes to keep the patient comfortable and to not pursue any further diagnostic. They want her to be on hospice care. We will consult hospice for further evaluation. I would continue with IV fluid hydration and antibiotic for UTI treatment for now. No further diagnostics. We will continue comfort measures in the meantime. Time with Patient: Greater than 30
[2019-08-06] MEDS: SODIUM CHLORIDE 0.9% 1,000 ML IV SCH (16:04)
[2019-08-06] MEDS: DEXTROSE 5%-0.45% NACL 1,000 ML IV SCH (18:54)
--- NOTE | 2019-08-07 00:49 | CONS ---
CONSULTATION NEW NEUROLOGY CONSULT NOTE: DATE OF SERVICE: 08/06/2019 This is a new neurology consult requested for stroke. This is an 84-year-old female brought into the hospital by her and caregiver. The patient has adult failure to thrive, advanced dementia, is bedbound. She was brought in due to concern for increasing altered mental status and lethargy since this past Saturday along with decreased p.o. intake. The patient has documented advanced dementia. 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 PAST MEDICAL HISTORY: Significant for dementia, thyroid disease, normal pressure hydrocephalus. REVIEW OF SYSTEMS: Review of systems was difficult to obtain due to the patient's current mental status and being nonverbal. Her daughter reports that her mother has been deteriorating over the past year. The daughter does not live with her mother. She lives in [place] and her mother is living at home with her stepfather who is in his 90s and a 24 hour caregiver. The daughter was not aware of any basilar tip aneurysm. This is new information. The daughter is expressing concern about neurosurgical intervention and considering more likely the family moving toward the palliative care position for their mother. EXAMINATION: [place] Coma Scale 5. Patient has eye opening only on stimulation. No verbal response. Minimally moves the extremities. There is decorticate posturing noted. Cranial nerve examination: Forced gaze deviation to the right with nystagmus. Motor exam: Increased rigidity noted in the upper and lower extremities bilaterally. Consistent with spasticity. GENERAL EXAM: Adult failure to thrive. HEENT: Pupils are 2 mm, minimally reactive to light. Radial, pedal pulses are symmetric, but weak. No rash, petechiae, or edema is noted in the lower extremities. ASSESSMENT: This is an 84-year-old female with severe adult failure to thrive, bedridden, who has been having minimal p.o. intake over the last several weeks. She was brought in for progressive altered mental status and lethargy by her 90-year-old and caregiver. This patient does have a known history of normal pressure hydrocephalus, that was never shunted. The information regarding the basilar tip aneurysm, however, was not known to the daughter or probably the family. Due to this patient's age and current condition, she would not be a potential surgical candidate. Initially there was discussion on transferring this patient for neurosurgical evaluation, but upon further discussion with the daughter, we discussed going into palliative care. We will not consider transfer at this time, but rather provide supportive care for the patient. Due to this patient's forced eye deviation to the right with some gaze evoked nystagmus, seizure activity should be ruled out. PLAN: 1. Obtain hospice palliative care consult for tomorrow morning. 2. EEG to rule out subclinical seizure activity. 3. Nutrition consult. 4. A.m. labs to include BMP, TSH, free T4, CBC with diff, comprehensive metabolic panel, UA. 5. If there is any acute clinical change, please obtain a stat CT scan of the head and call Dr. Dickens at [phone]. 6. If the family wishes to continue with full scale supportive care, this patient should be considered for PEG placement for ongoing nutritional support. This patient's prognosis remains poor. Further recommendations will occur as this case evolves. We will maintain hospital team and family updated as this case evolves. Thank you for this consultation. JOY / DILCIA: [id number] / PETRA
[2019-08-07 04:06] VITALS: RESP 18
[2019-08-07] MEDS: SODIUM CHLORIDE 0.9% 1,000 ML IV SCH (05:44)
[2019-08-07] MEDS: DEXTROSE 5%-0.45% NACL 1,000 ML IV SCH ×3 (05:44→17:07)
[2019-08-07] MEDS ORDERED: PANTOPRAZOLE 40 MG/10 ML VIAL IV SCH (09:00)
[2019-08-07] MEDS ORDERED: VANCOMYCIN 1,000 MG in SODIUM CHLORIDE 0.9% 250 ML IVPB ONE (09:00)
[2019-08-07 10:53] LABS: HCT 34.2 % (34.0-46.0); Hypochromasia Marked; MCH 33.6 pg (25.0-35.0); MCHC 30.8 g/dL (31.0-37.0); MCV 109.1 fL (80.0-100.0); Macrocytosis Marked; Mean Platelet Volume 9.2; Platelet Count 196 k/uL (150-450); RBC 3.13 m/uL (3.80-5.40); WBC 9.3 k/uL (3.8-10.6)
[2019-08-07 10:58] LABS: HGB 10.5 gm/dL (11.4-16.0)
[2019-08-07 10:59] LABS: Calcium 7.6 mg/dL (8.4-10.2); Magnesium 2.6 mg/dL (1.6-2.3); Phosphorus 2.3 mg/dL (2.5-4.5); Potassium 3.6 mmol/L (3.5-5.1)
[2019-08-07 11:42] VITALS: BP 87/57; PULSE 89; TEMP 97.1
[2019-08-07 13:59] VITALS: BMI 22.8
--- NOTE | 2019-08-07 21:06 | P.DS ---
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 In the ER she was found to have possible urinary tract infection, acute kidney injury, hypernatremia, and failure to thrive. She was started on IV fluids and IV antibiotics and admitted for further monitoring. She underwent a head CT along with a CT of the head and neck which showed severe normal pre ssure hydrocephalus and a basal artery aneurysm. She was seen by neurology who recommended palliative or supportive care. She is given IV fluids and had improvement in her electrolyte disturbances. She continued to be obtunded and nonresponsive. A long discussion was had by myself, her PCP, and the neurologists independently with the family and patient family elected decided to hospice care consistent with the patient's wishes from her prior advanced directives. She was subsequently discharged home to hospice care with [facility]. Dr. Huerta aware. Patient seen and examined at bedside. obtunded Vital signs reviewed and stable. General: Ill-appearing, appears at stated age Derm: warm, dry Head: atraumatic, normocephalic, symmetric Eyes: Pupils pinpoint equal, horizontal nystagmus noted Mouth: no lip lesion, mucus membranes dry Cardiovascular: [S1S2 reg with grade 3 systolic ejection murmur, positive posterior tibial pulse bilateral, Lungs: CTA bilateral, no rhonchi, no rales , no accessory muscle use Ext: no gross muscle atrophy, no edema, no contractures Neuro: Obtunded and not responsive, flexion contractures of bilateral hands Psych: Tentative nonresponsive A total of 35 minutes of time were spent preparing this complex discharge summary . Patient Condition at Discharge: Poor Plan - Discharge Summary Discharge Rx Participant: No New Discharge Prescriptions: New Cephalexin [Keflex Susp] 250 mg PO Q6HR 3 Days #1 bottle Continue Levothyroxine Sodium [Synthroid] 50 mcg PO DAILY Discontinued Alendronate Sodium 70 mg PO Q7D Discharge Medication List Levothyroxine Sodium [Synthroid] 50 mcg PO DAILY 11/27/16 [History] Cephalexin [Keflex Susp] 250 mg PO Q6HR 3 Days #1 bottle 08/07/19 [Rx] Follow up Appointment(s)/Referral(s): Maynor Huerta MD [Primary Care Provider] - 1-2 days Patient Instructions/Handouts: Sepsis (GEN), Ischemic Stroke (DC) Activity/Diet/Wound Care/Special Instructions: Activity: as tolerated Diet: regular if awake enough to swallow Special Instructions: Plan is to sign on with hospice at home Discharge Disposition: HOME WITH HOSPICE
--- NOTE | 2019-08-07 21:12 | P.PN ---
Progress Note - Text Progress Note Date: 08/07/19 Advanced Care Planning: Diagnoses: Advance dementia Discussion: Person(s) present and participating in discussion:JEANE Ms. Santamaria ([facility]) Summary: Patient presented to the hospital with advanced dementia and failure to thrive consistent with severe dehydration and hypernatremia. We discussed patient's severe normal pressure hydrocephalus, basal artery aneurysm, severe dehydration. I had also reviewed her prior advanced directives on file at the hospital which indicated that if she was terminally ill and life-sustaining procedure would serve only to artificially delay my.she would not want that and would like to be allowed to and kept comfortable. This was expressed with the daughter. I had a long discussion with her over the phone, Dr. Huerta was also present over the phone for the discussion if he has been a PCP P for this patient for quite some time. Family elected to return home with visiting [place] and hospice care. Past be discharged same day so they could be with the p atient. A total of 16 minutes of face to face time was spent discussing advanced care planning.
--- NOTE | 2019-08-08 12:19 | EEG ---
ELECTROENCEPHALOGRAM REPORT DATE OF SERVICE: 08/07/2019 HISTORY: This is an inpatient EEG performed on an 84-year-old female with adult failure to thrive who was brought into the hospital for further decompensation. The patient has a known history for moderate to severe normal pressure hydrocephalus never shunted. Also, her imaging studies revealed new findings of a basilar tip aneurysm. No prior EEG is available for review. TECHNICAL REPORT: This is an inpatient EEG performed on the [employer] EEG monitor with electrodes placed according to the International 10-20 system and a single EKG channel. Simultaneous video EEG monitoring was performed. This EEG was reviewed in both longitudinal bipolar, common average referential and transverse montages. Photic stimulation was performed. Hyperventilation was not performed due to the patient's underlying mental status. The recording begins with a severely suppressed background with intermittent periods of excessive muscle artifact emanating from the left temporal lobe. Frequently slowing is noted over the vertex. At 11:05:39 there is posturing noted of the right arm. This is associated with excessive generalized muscle artifact. Rare sharp waves are noted over the left frontal lobe. The background continues to remain severely suppressed throughout the recording consisting of primarily 3-4 hertz potentials. At 11:44:44 there is eye opening against a very suppressed background and rare surface positive sharp waves are noted over the midline vertex. The heart rate is noted to be irregular throughout the study. Photic stimulation at 6 hertz elicits excessive muscle artifact. This associated with head rocking back and forth. At 11:21:39 the background again becomes severely suppressed. The patient moves her right hand to her face. This is associated with decreased muscle and movement artifact. This EEG is considered abnormal and consistent with generalized diffuse cerebral dysfunction seen in states of metabolic encephalopathy. There were rare epileptiform discharges noted over the midline vertex and left frontal lobe. Suggesting this patient does have an increased risk for seizure activity. CLINICAL CORRELATION: This EEG does suggest the patient have an increased risk for seizures. Serial EEGs are recommended and/or a more prolonged overnight study could provide additional information. MMODL / IJN: [id number] /
== END 2019-08-07 18:10 | disposition hospice, home (50) | DRG 689 ==
LOC: EC 12:34 → 3SCARD 15:03 → 5NMEDONC 08-07 10:05
PROVIDERS: ADMIT Family Medicine; ATTEND Family Medicine
DX: N39.0 Urinary tract infection, site not specified (principal); G93.41 Metabolic encephalopathy; G91.2 (Idiopathic) normal pressure hydrocephalus; E87.0 Hyperosmolality and hypernatremia; E87.2 Acidosis; N17.9 Acute kidney failure, unspecified; D53.1 Other megaloblastic anemias, not elsewhere classified; E03.9 Hypothyroidism, unspecified; E86.0 Dehydration; E86.1 Hypovolemia; E87.5 Hyperkalemia; F02.80 Dementia in other diseases classified elsewhere, unspecified severity, without behavioral disturbance, psychotic disturbance, mood disturbance, and anxiety; G30.9 Alzheimer's disease, unspecified; G51.0 Bell's palsy; H51.8 Other specified disorders of binocular movement; Z51.5 Encounter for palliative care; Z66 Do not resuscitate; M06.9 Rheumatoid arthritis, unspecified; I67.1 Cerebral aneurysm, nonruptured; R62.7 Adult failure to thrive; Z74.01 Bed confinement status; Z79.890 Hormone replacement therapy; R63.4 Abnormal weight loss; Z68.22 Body mass index [BMI] 22.0-22.9, adult
CPT/HCPCS: 36415; 70450; 70496; 70498; 71045; 80048; 80053; 81001; 83605; 83735; 84100; 84484; 85025; 85027; 85610; 85730; 87040; 87086; 87635; 93005; 95819; 96361; 96365; 96366; 99291